=== PATIENT | female | born 1980 | race Caucasian/White ===

== ENCOUNTER 2025-03-16 13:18 | Outpatient (AMB) | payer OTHER, SELFPAY ==
[2025-03-16 13:18] VITALS: BP 126/68; BMI 31.9
--- NOTE | 2025-03-16 13:18 | A.OFFVIS_ITS ---
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: Central Supply Technician Supervisor offered & declined Allergies No Known Allergies (No Known Allergies*) Allergy (Unverified 03/16/25 13:20) Medication List - Last Reconciled 03/16/25 by Adelita Jennings CNM cyclobenzaprine 10 mg PO BEDTIME PRN levonorgestrel (Mirena) intrauterine meloxicam 7.5 mg PO DAILY PRN sertraline mg PO Is last menstrual period known: Yes Last menstrual period: 03/10/25 HPI Comments Details: The patient is a 44 year old female presenting for a routine annual gynecolo gical exam, She is new to the office and 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 Reports this is her third Mirena IUD and is accustomed to amenorrhea; however, she experienced a 4-5 day period last month, followed by another period/spotting the subsequent week. She had another episode of bleeding from the to the of the current month, which she describes as light enough for a panty liner, with red to pink blood for the first two days followed by brown discharge. She desires IUD removal as she has not been in a relationship for several years and feels she is keeping it in her body for no reason. She describes 2 abn PAPs in the past which were subsequently found to be normal on repeat testing, with the last one occurring approximately 10 years ago. Her maternal grandmother had a MANPOWER DEVELOPMENT SPECIALIST cancer (cervix or uterus) discovered late in her 90s. The patient denies a history of diabetes or hypertension but reports a history of irregular heartbeat. She recently experienced an episode of rapid heartbeat lasting for about 30 seconds, accompanied by lightheadedness, which resolved with deep breaths. she followed with her PCP and an EKG performed afterward was unremarkable, and she has a pending referral to cardiology. Her family history is significant for coronary artery disease; her paternal grandfather and uncle both from fatal heart attacks and her father required a stent for a large clot this year. Her surgical history is positive for a breast reduction. Socially, she smokes marijuana combined with tobacco and drinks alcohol seldomly. 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 She reports frequent bowel movements, sometimes loose or watery, which she believes are triggered by anxiety and stress. Excercise is limited Last Mammo : [facility] Medical History (Updated 03/16/25 @ 14:25 by Adelita Jennings CNM) Patient denies medical problems Surgical History H/O bilateral breast reduction surgery (2004) Family History Maternal Grandmother Cervical cancer Social History (Updated 03/16/25 @ 14:26 by Adelita Jennings CNM) Household Members: Family Alcohol intake: current Alcohol intake frequency: a few times a month Patient Tobacco Use Status: Current everyday Tobacco user e-Cigarette/Vaping Use: Never Used Substance Use Type: Marijuana Sexually active: Yes Sexual orientation: Straight/Heterosexual Gender identity: Female Female Reproductive History Menstrual Age of Menarche: 11 Duration of menses: 3-5 days Date of last menstrual period: 03/10/25 control method: progestin IUCD Total pregnancies: 3 Number of Living Children: 2 Ab induced: 1 History of abnormal pap smear: Yes Review of Systems Const Reports no additional complaints Eyes Reports no additional complaints ENT Reports no additional complaints Card Reports as per [facility] and Reports no additional complaints Resp Reports no additional complaints GI Reports no additional complaints Reports as per HPI Skin/Breast Reports system reviewed and no additional complaints, except as documented Physical Exam Vital Signs: Last Vital Signs BP 126/68 03/16/25 13:18 BMI result Body Mass Index 31.9 Const General: cooperative, healthy appearing and no acute distress Orientation/consciousness: patient oriented x3 HEENT Head: Yes normal to inspection and Yes normocephalic Ears: external ears normal Neck Neck: Yes normal visual inspection Chest Breast/axilla inspection: normal inspection of the breasts, normal inspection of the axillae and Other (No skin changes, peau d orange, or nipple discharge noted) Breast/axilla palpation: normal palpation of the breasts, normal palpation of the axillae and no axillary lymphadenopathy Resp Effort & Inspection: normal respiratory effort and able to speak in complete sentences GI Inspection: No distended Palpation (GI): Soft to palpation, nontender and no masses Percussion: Yes normal to percussion Rectal Exam - Female: No External hemorrhoid(s) present External Female Exam: normal external appearance and normal appearance of the urethra Speculum Exam - Vagina: normal appearance of the vagina and normal vaginal discharge Speculum Exam - Cervix: normal appearance of the cervix (iud strings visible) and normal palpation (neg CMT) Bimanual exam- vagina & uterus: normal bimanual exam, normal palpation (neg CMT), uterine mobility normal and non-tender Bimanual Exam- Adnexa, other: no masses and No adnexal tenderness Skin General skin exam: no rashes or lesions noted Neuro General: patient oriented x3 and moves all extremities Extrem General: Yes full ROM Psych Speech and movement: Normal speech and movement present Affect: normal affect Attitude: cooperative Thought process: Normal thought process present Office Procedures IUD Insert/Removal Details 37824-BSF Removal Procedure code (CPT) selection complete Assessment & Plan Assessment & Plan (1) DUB (dysfunctional uterine bleeding): Code(s): N93.8 - Other specified abnormal uterine and vaginal bleeding (2) IUD (intrauterine device) in place: Code(s): Z97.5 - Presence of (intrauterine) contraceptive device (3) Well woman exam with routine gynecological exam: Code(s): Z01.419 - Encounter for gynecological examination (general) (routine) without abnormal findings Plan: During the visit, the following areas of concern were addressed: Monitoring of the menstrual cycle Contraception, including options and instructions, risks and benefits Regular exercise Healthy lifestyle STD strategies to avoid exposure Smoking cessation Substance use Menopausal/cherelle-menopausal signs and symptoms, including nonprescription strategies for management Health Maintenance and Screening -Reviewed ASCCP guidelines for Paps and yearly (bi-yearly ) pelvic exam. -Reviewed and encouraged diet and exercise for cardiovascular and bone health -Reviewed breast self-awareness. Importance of yearly mammogram after age 40 (earlier if first-degree relative with breast cancer at a younger age ) Discuss use of 3 times per week weight-bearing exercise, vitamin D3 and servings of dietary calcium daily for bone health. -continue to follow with PCP for general medical care, immunizations. Family and personal history of cancer reviewed. Genetic screening optional- not indicated The patient has BMI: 31 Approaches towards weight loss are discussed including burning more calories than one takes in by frequent, small meals, portion control, avoiding eating before bedtime, regular exercise with an emphasis on duration rather than intensity. RTO one year or sooner ankush Jennings CNM Note about provider documentation : If you or the patient named in this chart and are reviewing your medical notes, please note that medical documentation is often written with abbreviations and medical terminology, and directed for other providers who may be involved in your care as well. Documentation is critical to record what has happened, what tests were ordered, and so they are interpreted with the resulting diagnoses. These notes have been made available for patient review but not specifically w ritten for the patient. Important health information is always given to my patients in clinical instructions. Please review your after visit summary and our contact our clinical staff if you have any questions. (4) Screening for malignant neoplasm of cervix: Code(s): Z12.4 - Encounter for screening for malignant neoplasm of cervix (5) Encounter for removal of intrauterine contraceptive device (IUD): Code(s): Z30.432 - Encounter for removal of intrauterine contraceptive device Plan: Pre-Procedure diagnosis: Desired IUD removal Post-procedure diagnosis: same Procedure: IUD removal PROCEDURE: Informed consent including discussion of risks, benefits and alternatives was obtained. The patient was placed in dorsal lithotomy position, speculum was placed in the vagina and IUD strings were visualized. The IUD was then removed using a ring forceps. The patient tolerated the procedure well. Findings: Normal appearing anatomy Complications: None Condition: Stable Plan: 1. Patient counseled that fertility is immediate following IUD removal and to expect ovulation in the next 3-4 days. 2. New method of control: condoms Plan 1. Abnormal Uterine Bleeding & Contraception Management The patient, who is on her third Mirena IUD, presents with recent irregular spotting. The bleeding may be due to the IUD nearing the end of its efficacy or a possible infection. She desires removal of the IUD as she is not currently sexually active. Plan: The Mirena IUD was removed in the office and was noted to be intact. Swabs for a Pap smear and to rule out infection were collected. The patient was counseled that her menstrual cycle may take up to 3 months to normalize. She was advised to use condoms for contraception if she becomes sexually active and informed that another IUD can be placed in the future if desired. 2. Routine Gynecological Care & Health Maintenance The patient is due for her annual MANPOWER DEVELOPMENT SPECIALIST exam and has a history of two prior abnormal Pap smears, though it has been several years since her last screening. Plan: A complete annual exam including a breast exam and pelvic exam was performed. A co-test Pap smear was collected. The patient will sign a release of information to obtain records of her last Pap smear from [facility]. She will schedule a follow-up appointment in one year. 3. Palpitations & Strong Family History of Coronary Artery Disease The patient reported a recent, self-resolving episode of palpitations and has a pending cardiology referral. There is a significant paternal family history of fatal heart attacks and coronary artery disease requiring intervention. Plan: The patient was encouraged to follow up with the cardiology referral. She was advised to contact the cardiology department if she does not receive an a ppointment within 7-10 business days. She was also counseled to monitor for triggers for her symptoms. 4. Skin Tags The patient noted new skin tags on her inner thighs and was concerned about their etiology, including a possible connection to STIs. Plan: On examination, the lesions were identified as benign-appearing skin tags. The patient was reassured. It was explained that removal is considered a cosmetic procedure. 5. Tobacco Use The patient reports mixing tobacco with marijuana for the past 5 years. She acknowledges the difficulty in quitting. Plan: The risks of tobacco use, including lung and throat cancer, were briefly discussed. The patient was encouraged to quit when she is ready. 6. 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 She struggles to find time for exercise despite owning equipment. Plan: The patient's stress was acknowledged. She was encouraged to start with small, manageable amounts of activity, such as 10 minutes of exercise or meditation per day. Orders: Orders CT NG by PCR Vag/Cerv Today N93.8 - Other specified abnormal uterine and vaginal bleeding, Z97.5 - Presence of (intrauterine) contraceptive device Bacterial Vaginosis Panel Today Z01.419 - Encounter for gynecological examination (general) (routine) without abnormal findings Pap Smear Today Z01.419 - Encounter for gynecological examination (general) (routine) without abnormal findings, Z12.4 - Encounter for screening for malignant neoplasm of cervix Coding Level of Care Code New Pt Prev Care 40-64y(49628) Diagnoses DUB (dysfunctional uterine bleeding) N93.8 IUD (intrauterine device) in place Z97.5 Well woman exam with routine gynecological exam Z01.419 Screening for malignant neoplasm of cervix Z12.4 Encounter for removal of intrauterine contraceptive device (IUD) Z30.432 CPT Codes Details - CPT: 32789-SIW Removal ([id number])
--- OUTSIDE RECORDS SUMMARY | 2025-03-16 14:24 | XMS_ITS | Clinical Summary ---
Author Organization [facility] Address [address] [place] [phone] Phone Care Team Providers Care Etcher Machine Name Role Phone Diane Elder NP Unavailable Diane Elder NP Primary Care Provider [phone] Allergies No known active allergies Medications cholecalciferol (VITAMIN D3) 1,000 unit tablet Take 1,000 Units by mouth daily. Active biotin 300 mcg Tab Take 5,000 mcg by mouth daily. Active b complex vitamins capsule Take 1 capsule by mouth daily. Active multivitamins with minerals-iron (THERA-VM) Tab Take 1 tablet by mouth daily. Active calcium acetate (PHOSLO) 667 mg (169 mg elemental) capsule Take 1,334 mg by mouth 3 (three) times a day with meals. Active fexofenadine-ps eudoephedrine ([place]-D) 60-120 mg per tablet Take 1 tablet by mouth 2 (two) times a day. Active Hospital, Clinic, or Other Facility Administered Medication Ordered Dose Route Frequency Start Date End Date Status levonorgestrel (MIRENA) 20 mcg/24 hours (5 yrs) 52 mg intrauterine device 1 eachIndications:Encounter for removal and reinsertion of intrauterine contraceptive device (IUD) 1 each Utrn Every 5 years 01/13/2019 Active Active Problems Problem Noted Date Diagnosed Date Encounter for removal and re insertion of intrauterine contraceptive device (IUD) 01/13/2019 IUD (intrauterine device) in place 05/22/2017 Overview (05/22/2017): Mirena (07/2012) History of abnormal cervical Pap smear 8 Overview (05/24/2017): 06/2007, 08/2007: LGSIL 2009: NIL 2012: NIL 11/2015: NIL/HPV + 12/2016: NIL/HPV + -> colpo benign PLAN: repeat in 1 year Family History Medical History Relation Comments Hypertension Father Alzheimer's disease Maternal Grandfather Cancer Maternal Grandmother No Known Problems Mother Relation Status Comments Brother Father Alive Maternal Grandfather Maternal Grandmother Mother Alive Paternal Grandfather Paternal Grandmother Social History Tobacco Use Types Packs/Day Years Used Date Smoking Tobacco: Never Smokeless Tobacco: Never Alcohol Use Standard Drinks/Week Comments Yes 0 (1 standard drink = 0.6 oz pur e alcohol) once in a blue [place] Education Answer Date Recorded Are you interested in more education? Not on gurwinder e 07/20/2022 Are you concerned about learning? Not on file 07/20/2022 No 07/20/2022 No 07/20/2022 Digital Access Answer Date Recorded No 08/17/2022 No 08/17/2022 Reliable internet access at home? Not on file 08/17/2022 Device with a working camera? Not on file Comments No Sex and Gender Information Value Date Recorded Sex Assigned at Not on file Legal Sex Female 9:23 PM EDT Gender Identity Not on file Sexual Orientation Not on file Occupation Industry Job Start Date Job End Date [employer] Not on file Not on file Not o n file Last Filed Vital Signs Vital Sign Reading Time Taken Comments Blood Pressure 112/68 02/24/2019 4:17 PM EST Pulse - - Temperature - - Respiratory Rate - - Oxygen Saturation - - Inhaled Oxygen Concentration - - Weight 87.1 kg (192 lb) 02/24/2019 4:17 PM EST Height 174 cm (5' 8.5 ) 02/24/2019 4:17 PM EST Body Mass Index 28.77 02/24/2019 4:17 PM EST Plan of Treatment Health Maintenance Due Date Last Done Comments LIPID PANEL 1978 DEPRESSION SCREENING 1990 HEPATITIS C SCREENING 1996 HIV ONE-TIME SCREENING (18-6 5 YEARS) 1996 Adult Td,Tdap Booster 11/07/2013 11/08/2003 MAMMOGRAM 01/23/2021 01/23/2019 PAP SMEAR 10/15/2021 10/15/2018, 10/15/2018, 12/25/2016 COLOGUARD 11/25/2023 COLONOSCOPY 11/25/2023 COLORECTAL CANCER SCREENING 11/25/2023 FIT TEST 11/25/2023 FOBT 11/25/2023 SIGMOIDOSCOPY 11/25/2023 VIRTUAL COLONOSCOPY 11/25/2023 INFLUENZA VACCINE (#1) 2024 COVID-19 VACCINE (3 - 2024-2 6 season) 2024 04/26/2020, 03/29/2020 IUD 01/13/2027 01/13/2019 SMOKING STATUS SCREENING (On ce After 26 Yrs) Completed 01/13/2019 HEPATITIS A VACCINES Aged Out No long er eligible based on patient's age to complete this topic HIB VACCINES Aged Out No longer eligi ble based on patient's age to complete this topic MENINGOCOCCAL VACCINES (ACWY) Aged Out No longer eligible based on patient's age to complete this topic MENINGOCOCCAL VACCINES (B) Aged Out N o longer eligible based on patient's age to complete this topic PNEUMOCOCCAL VACCINES (0-49 years) Aged Out No longer eligible b ased on patient's age to complete this topic Medical Devices Not on file Procedures Procedure Name Priority Date/Time Associated Diagnosis Comments BI MAMMOGRAM SCREENING WITH TOMOSYNTHESIS WITH CAD (BILATERAL) Routine 01/23/2019 7:30 AM EDT Breast screening PAP TEST Routine 10/15/2018 12:00 AM EDT from Last 3 Months or Most Recently Relevant to Health Maintenance Results * BI MAMMOGRAM SCREENING WITH TOMOSYNTHESIS WITH CAD (BILATERAL) (01/23/2019 7:30 AM EDT) Anatomical Region Laterality Modality Breast Left, Breast Right, Breast Bilateral Bila teral Mammography 01/23/2019 11:0 3 AM EDT Impressions 01/23/2019 11:06 AM EDT No mammographic change indicative of malignancy. Routine screening is recommended. BI-RADS CATEGORY: 2 - Benign finding. DENSITY: The breast tissue is heterogeneously dense, an appearance which lowers the sensitivity of mammography. POS -CDHMAMA Narrative 01/23/2019 11:06 AM EDT Bilateral full-field digital screening mammography is obtained and read in conjunction with computer-aided detection. Tomosynthesis as well as 2-D C view imaging of both breasts in two planes also obtained. There is a baseline study. No dominant mass, architectural distortion, worrisome asymmetry, or suspicious calcification is identified. No skin or nipple finding of concern is appreciated. Some dermal calcification noted, more on the right. Procedure Note Yara Malagon MD - 01/23/2019 Bilateral full-field digital screening mammography is obtained and read inconjunction with computer-aided detection. Tomosynthesis as well as 2-D Cview imaging of both breasts in two planes also obtained. There is abaseline study. No dominant mass, architectural distortion, worrisome asymmetry, orsuspicious calcification is identified. No skin or nipple finding ofconcern is appreciated. Some dermal calcification noted, more on theright. IMPRESSION: No mammographic change indicative of malignancy. Routine screening isrecommended. BI-RADS CATEGORY: 2 - Benign finding. DENSITY: The breast tissue is heterogeneously dense, an appearance whichlowers the sensitivity of mammography. POS -CDHMAMA Diane Elder TEARER IMG MG EXAMS Final Resul t * Pap Smear (10/15/2018 12:00 AM EDT) 10/15/2018 10/16/2018 9:5 7 AM EDT Narrative SEE NARRATIVE - 10/27/2018 8:40 AM EDT [address] [address] Print Room Worker: Paige Brooks MD INTERNAL REVIEW AND AUDIT COMPLIANCE Cytology Report FINAL DIAGNOSIS A. PAP SMEAR (SUREPATH) CE: SPECIMEN ADEQUACY: Satisfactory for evaluation; transformation zone present. INTERPRETATION: NEGATIVE FOR INTRAEPITHELIAL LESION OR MALIGNANCY. Coccobacilli consistent with shift in salo Electronically Signed Out By: Ishan M. Veronica, CT(ASCP) The Pap test is a screening test primarily for squamous cancers and precursors and has associated false-negative and false-positive results. New technologies such as liquid-based preparations may decrease but will not eliminate all false-negative results. Regular sampling and follow-up of unexplained clinical signs and symptoms are recommended to minimize false negative results. PROCEDURES/ADDENDA HPV Testing (Requested) Ordered Date: 10/16/2018 A. PAP SMEAR (SUREPATH) CE: Human Papilloma Virus Test Negative for high-risk human papillomavirus types 16, 18, 45 and the Other high risk probe set (Includes 31, 33, 35, 39, 51, 52, 56, 58, 59, 66, 68) by [place] HR-HPV analysis. Clinical correlation is advised. This HPV test was performed at [facility], [address] [place] [address]. This test has been FDA approved for SurePath cervical cytology specimens. The accuracy and precision of this test for all other specimen sources has been verified in the Cytopathology Laboratory of the [facility] and has not been cleared or approved by the U.S. Food and Drug Administration. Clinical correlation is advised. CLINICAL HISTORY Date of Last Menstrual Period: Not Provided Menstrual History: Unknown Contraceptive History: IUD Other Clinical Conditions: Screening Pap H/O LSIL: 2007 SPECIMEN SOURCE A: PAP SMEAR (SUREPATH) CE Patient Name: ALONDRA SNOW : 1980 (Age: 37) Sex: F Institution: [facility] Location: [facility] Date of Collection: 10/15/2018 Date of Reported: 10/21/2018 12:13 Results to: Veronica Nicolas MD us Veronica Nicolas MD CYTOLOGY ORDERABLES Edited Re sult - Final SEE NARRATIVE from Last 3 Months or Most Recently Relevant to Health Maintenance Insurance O ([place]) [phone] [facility] Care Teams Etcher Machine Relationship Specialty Start Date End Date Diane Elder NP [address] [place] [address] PCP - General 10/15/18 Diane Elder NP [address] [place] [address] Historical LMR Provider 01/13/17 Additional Source Comments The information contained in this document represents components of the legal health record. It is not the complete legal health record.[facility]
--- OUTSIDE RECORDS SUMMARY | 2025-03-16 14:24 | XMS_ITS | Clinical Summary ---
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 Name Role Phone Ced Frey DO Primary Care Provider [phone] Encounters Date Type Department Care Team Description 03/05/2025 Telephone [facility] - [address] [place] [address] Ced Frey DO 02/26/2025 2:40 PM EST Lab Draw Station - [facility] [address] [place] [address] Encounter for general adult medical examination without abnormal findings; Irregular menstruation, unspecified 02/26/2025 2:35 PM EST Lab Draw Station - [address] [address] [place] [address] 02/26/2025 2:25 PM EST Lab Draw Station - [address] [address] [place] [address] from Last 3 Months Surgical History Surgery Date Site/Laterality Comments BREAST REDUCTION 2014 Bilateral PROCEDURE: MT BREAST REDUCTION Medical History Medical History Date Comments Seasonal allergies DX:Seasonal a llergies Anxiety disorder DX:Anxiety diso rder Vitamin D deficiency 08/16/2020 DX:Vitamin D deficiency Migraine 08/16/2020 DX:Migraine Allergic rhinitis 08/16/2020 DX:Allergic rh initis Family History Medical History Relation Name Comments Depression Father blindness russel mckeon to glaucoma, hyperlipidemia Alzheimer's disease Maternal Grandmother Cervical cancer Maternal Grandmother Depression Mother fibromyalgia Osteoporosis Mother Bipolar disorder Paternal Grandmother Relation Name Status Comments Father Alive Maternal Grandfather Maternal Grandmother Mother Alive Paternal Grandfather Paternal Grandmother Social History Tobacco Use Types Packs/Day Years Used Date Smoking Tobacco: Light Smoker Smokeless Tobacco: Former Tobacco Cessation:Ready to Q uit: No; Counseling Given: No Alcohol Use Standard Drinks/Week Comments Yes 0 (1 standard drink = 0.6 oz pur e alcohol) Comments No Sex and Gender Information Value Date Recorded Sex Assigned at Female 03/12/2024 8:59 AM EST Legal Sex Female 4:52 AM EST Gender Identity Female 03/12/2024 8:59 AM EST Sexual Orientation Choose not to disclose 2023 8:59 AM EST Obstetrics History Para Term AB IAB SAB Ectopic Multiple Livin g Live Births 2 Last Filed Vital Signs Vital Sign Reading Time Taken Comments Blood Pressure - - Pulse - - Temperature - - Respiratory Rate - - Oxygen Saturation - - Inhaled Oxygen Concentration - - Weight 83.5 kg (184 lb) 04/04/2024 9:36 AM EST Height 175.3 cm (5' 9 ) 04/04/2024 9:36 AM EST Body Mass Index 27.17 04/04/2024 9:36 AM EST Plan of Treatment Health Maintenance Due Date Last Done Comments Colorectal Cancer Screening: Colonoscopy 1978 Pneumococcal Vaccine: Pediatrics (0 to 5 Years) and At-Risk Patients (6 to 49 Years) (1 of 2 - PCV) 1997 Cervical Cancer Screening: Pap Smear 11/25/1999 HIV Screening 02/25/2022 Social Influencers of Health Screening 02/25/2022 Depression Screening 03/25/2024 DTaP,Tdap,and Td Vaccines (3 - Td or Tdap) 01/04/2025 01/04/2015, 11/08/2003 Breast Cancer Screening 04/04/2026 04/04/2024, 01/23 Cholesterol Screening (Lipid Panel) 02/26/2030 02/26/2025, 03/06/2024 RSV Immunization Adult Patients (1 - 1-dose 75+ series) 2053 MMR Vaccines Aged Out 11/08/2003 No longer eligi ble based on patient's age to complete this topic Hepatitis B Vaccines Completed 08/31/2009, 03/22/2009, 02/04/2009, Additional history exists Hepatitis C Screening Completed 03/06/2024 COVID-19 Vaccine Completed 12/12/2024, 07/2021, 04/18/2021, Additional history exists Influenza Vaccine Completed 12/12/2024, , 12/20/2022, Additional history exists HIB Vaccines Aged Out No longer eligi ble based on patient's age to complete this topic HPV Vaccines Aged Out No longer eligi ble based on patient's age to complete this topic Hepatitis A Vaccines Aged Out No long er eligible based on patient's age to complete this topic IPV Vaccines Aged Out No longer eligi ble based on patient's age to complete this topic Meningococcal ACWY Vaccine Aged Out N o longer eligible based on patient's age to complete this topic Meningococcal B Vaccine Aged Out No l onger eligible based on patient's age to complete this topic RSV Immunization Patients Under 20 months Aged Out No longer eligible based on patient's age to complete this topic Varicella Vaccines Aged Out No longer eligible based on patient's age to complete this topic Procedures Procedure Name Priority Date/Time Associated Diagnosis Comments CBC WITH AUTO DIFFERENTIAL Routine 02/26/2025 2:34 PM EST Encounter for general adult medical examination without abnormal findings LUTEINIZING HORMONE Routine 02/26/2025 2 :34 PM EST Irregular menstruation, unspecified FOLLICLE STIMULATING HORMONE Routine 02/26/2025 2:34 PM EST Irregular menstruation, unspecified ESTRADIOL Routine 02/26/2025 2:34 PM EST Irregular menstruation, unspecified PROGESTERONE Routine 02/26/2025 2:34 PM EST Irregular menstruation, unspecified CBC AND DIFFERENTIAL Routine 02/26/2025 2:34 PM EST Encounter for general adult medical examination without abnormal findings THYROID STIMULATING HORMONE Routine 02/26/2025 2:34 PM EST Encounter for general adult medical examination without abnormal findings LIPID PANEL WITH REFLEX TO DIRECT LDL Routine 02/26/2025 2:34 PM EST Encounter for general adult medical examination without abnormal findings HEMOGLOBIN A1C Routine 02/26/2025 2:34 PM EST Encounter for general adult medical examination without abnormal findings BASIC METABOLIC PANEL Routine 02/26/2025 2:34 PM EST Encounter for general adult medical examination without abnormal findings ASPARTATE AMINOTRANSFERASE Routine 02/26/2025 2:34 PM EST Encounter for general adult medical examination without abnormal findings ALANINE AMINOTRANSFERASE Routine 2:34 PM EST Encounter for general adult medical examination without abnormal findings MG MAMMO DIGITAL SCREENING W SHASHANK BILAT Routine 04/04/2024 9:47 AM EST Encounter for screening mammogram for malignant neoplasm of breast HEPATITIS C ANTIBODY Routine 03/06/2024 1:32 PM EST Routine general medical examination at a health care facility Impaired fasting glucose Screening for ischemic heart disease Screening for thyroid disorder Numbness and tingling in both hands CTS (carpal tunnel syndrome) Fatigue from Last 3 Months or Most Recently Relevant to Health Maintenance Results * Lipid panel with reflex to direct LDL (02/26/2025 2:34 PM EST) Cholesterol 193 0 - 200 mg/dL 02/26/2025 8:24 PM [facility] Triglycerides 131 0 - 150 mg/dL 02/26/2025 8:24 PM [facility] HDL 67 >=40 mg/dL 02/26/2025 8:24 PM [facility] LDL Calculated 100 0 - 100 mg/dL 02/26/2025 8:24 PM [facility] Comment:Estimated LDL Calcul ated using equation: Total cholesterol - HDL cholesterol - (Triglycerides/5) VLDL Cholesterol Bruce 26.2 mg/dL 02/26/2025 8:24 PM [facility] Non HDL Chol. (LDL+VLDL) 126 <145 mg/dL 02/26/2025 8:24 PM [facility] Chol/HDL Ratio 2.9 0.0 - 4.4 02/26/2025 8:24 PM [facility] Blood Venipuncture / Unknown 02/26/2025 2:34 PM EST 02/26/2025 2:34 PM EST us Bynum James OUTREACH MANAGER LAB BLOOD ORDERABLES Final Resul t [facility] [address] [place] [address], * CBC auto differential (02/26/2025 2:34 PM EST) WBC 6.8 4.8 - 10.8 K/mcL LAB HEMETOLOGY METHOD 02/26/2025 7:34 PM [facility] RBC 4.40 3.80 - 4.80 M/mcL LAB HEMETOLOGY METHOD 02/26/2025 7:34 PM [facility] Hemoglobin 13.6 11.5 - 16.0 g/dL LAB HEMETOLOGY METHOD 02/26/2025 7:34 PM [facility] Hematocrit 40.1 35.0 - 47.0 % LAB HEMETOLOGY METHOD 02/26/2025 7:34 PM [facility] MCV 92.2 79.0 - 98.0 FL LAB HEMETOLOGY METHOD 02/26/2025 7:34 PM [facility] MCH 31.3 27.0 - 32.0 pcg LAB HEMETOLOGY METHOD 02/26/2025 7:34 PM [facility] MCHC 33.9 32.0 - 37.0 g/dL LAB HEMETOLOGY METHOD 02/26/2025 7:34 PM [facility] RDW 12.5 11.0 - 15.0 % LAB HEMETOLOGY METHOD 02/26/2025 7:34 PM [facility] Platelets 292 130 - 400 K/mcL LAB HEMETOLOGY METHOD 02/26/2025 7:34 PM [facility] MPV 9.9 7.0 - 11.0 FL LAB HEMETOLOGY METHOD 02/26/2025 7:34 PM [facility] NRBC 0.0 <1.0 % LAB HEMETOLOGY METHOD 02/26/2025 7:34 PM [facility] NRBC Absolute 0.00 <0.10 K/mcL LAB HEMETOLOGY METHOD 02/26/2025 7:34 PM [facility] Neutrophils Relative 54.7 % LAB HEMETOLOGY METHOD 02/26/2025 7:34 PM [facility] Lymphocytes Relative 35.2 % LAB HEMETOLOGY METHOD 02/26/2025 7:34 PM [facility] Monocytes Relative 6.0 % LAB HEMETOLOGY METHOD 02/26/2025 7:34 PM [facility] Eosinophils Relative 3.1 % LAB HEMETOLOGY METHOD 02/26/2025 7:34 PM [facility] Basophils Relative 0.9 % LAB HEMETOLOGY METHOD 02/26/2025 7:34 PM [facility] Immature Granulocytes Relative 0.1 % LAB HEMETOLOGY METHOD 02/26/2025 7:34 PM [facility] Neutrophils Absolute 3.71 1.50 - 7.00 K/mcL LAB HEMETOLOGY METHOD 02/26/2025 7:34 PM [facility] Lymphocytes Absolute 2.39 1.00 - 5.00 K/mcL LAB HEMETOLOGY METHOD 02/26/2025 7:34 PM [facility] Monocytes Absolute 0.41 0.20 - 1.00 K/mcL LAB HEMETOLOGY METHOD 02/26/2025 7:34 PM [facility] Eosinophils Absolute 0.21 0.00 - 0.50 K/mcL LAB HEMETOLOGY METHOD 02/26/2025 7:34 PM EST [facility] Basophils Absolute 0.06 0.00 - 0.20 K/[facility] LAB HEMETOLOGY METHOD 02/26/2025 7:34 PM EST [facility] Immature Granulocytes Absolute 0.01 0.00 - 0.03 K/[facility] LAB HEMETOLOGY METHOD 02/26/2025 7:34 PM EST [facility] Blood Venipuncture / Unknown 02/26/2025 2:34 PM EST 02/26/2025 2:34 PM EST Misa James OUTREACH MANAGER LAB BLOOD ORDERABLES Final Resul t Performing Organization Address [facility] Co de Phone Number [facility] [address] [place] [address], [place] [phone] * Progesterone (02/26/2025 2:34 PM EST) Progesterone 1.2 See comment ng/mL 02/26/2025 10:26 PM EST [facility] Blood Venipuncture / Unknown 02/26/2025 2:34 PM EST 02/26/2025 2:34 PM EST Narrative [facility] - 02/26/2025 10:26 PM EST Progesterone Female Reference Ranges (ng/mL) Normally Menstruating: Follicular phase: 0.2 - 1.4 Mid-cycle phase: 3.3 - 25.6 Luteal phase: 4.4 - 28.0 Post-menopausal: 0.7 or less : First trimester: 11.2 - 90.0 Second trimester: 25.6 - 89.4 Third trimester: 48.4 - 422.5 This assay should not be used in patients taking DHEA supplements as part of IVF treatment. A metabolite (DHEA-S) of this supplement has been shown to cross-react with the progesterone assay and cause falsely elevated results. Bynum James OUTREACH MANAGER LAB BLOOD ORDERABLES Final Resul t [facility] [address] [place] [address], [place] [phone] * Estradiol (02/26/2025 2:34 PM EST) Estradiol 85 See below pcg/mL 02/26/2025 10:27 PM EST [facility] Blood Venipuncture / Unknown 02/26/2025 2:34 PM EST 02/26/2025 2:34 PM EST Narrative [facility] - 02/26/2025 10:27 PM EST Estradiol Female Reference Ranges (pg/mL): Menstruating: Follicular phase: 19.5 - 144.2 Mid-cycle phase: 63.9 - 356.7 Luteal phase: 55.8 - 214.2 Post menopausal: Untreated: ND - 32.2 Fulvestrant has been shown to cross-react with the estradiol assay and cause falsely elevated results. For patients being treated with fulvestrant, Estradiol ultrasensitive should be ordered. This test is performed by LC/MS and is not expected to show cross reactivity to fulvestrant. us Bynum James OUTREACH MANAGER LAB BLOOD ORDERABLES Final Resul t Performing Organization Address [facility] de Phone Number [facility] [address] [place] [address], [place] [phone] * Alanine aminotransferase (02/26/2025 2:34 PM EST) ALT (SGPT) 28 10 - 60 unit/L 02/26/2025 8:24 PM EST [facility] Blood Venipuncture / Unknown 02/26/2025 2:34 PM EST 02/26/2025 2:34 PM EST us Bynum James OUTREACH MANAGER LAB BLOOD ORDERABLES Final Resul t Performing Organization Address [facility] Co de Phone Number [facility] [address] [place] [address], [place] [phone] * Aspartate aminotransferase (02/26/2025 2:34 PM EST) AST (SGOT) 22 10 - 42 unit/L 02/26/2025 8:24 PM EST [facility] Blood Venipuncture / Unknown 02/26/2025 2:34 PM EST 02/26/2025 2:34 PM EST [facility] LAB BLOOD ORDERABLES Final Resul t Performing Organization Address City/[facility]/ZIP Co de Phone Number [facility] [address] [place] [address], [place] [phone] * Thyroid stimulating hormone (02/26/2025 2:34 PM EST) Pathologist [facility] TSH 1.42 0.40 - 4.00 mcIU/mL 02/26/2025 8:37 PM EST [facility] Blood Venipuncture / Unknown 02/26/2025 2:34 PM EST 02/26/2025 2:34 PM EST [facility] LAB BLOOD ORDERABLES Final Resul t Performing Organization Address City/[facility]/ZIP Co de Phone Number [facility] [address] [place] [address], [place] [phone] * Hemoglobin A1c (02/26/2025 2:34 PM EST) Pathologist [facility] Hemoglobin A1C 5.1 <6.5 % LAB CHEMISTRY METHOD 03/03/2025 2:34 PM EST [facility] Mean Bld Glu Estim. 100 mg/dL LAB CHEMISTRY METHOD 03/03/2025 2:34 PM EST [facility] Blood Venipuncture / Unknown 02/26/2025 2:34 PM EST 02/26/2025 2:34 PM EST us Bynum James OUTREACH MANAGER LAB BLOOD ORDERABLES Final Resul t Performing Organization Address City/[facility]/ZIP Co de Phone Number [facility] [address] [place] [address], * Luteinizing hormone (02/26/2025 2:34 PM EST) Luteinizing Hormone 6.6 See Comment mIU/mL 02/26/2025 10:26 PM EST [facility] Blood Venipuncture / Unknown 02/26/2025 2:34 PM EST 02/26/2025 2:34 PM EST Narrative [facility] - 02/26/2025 10:26 PM EST LH Female Reference Ranges (mIU/mL): Menstruating: Follicular phase: 1.9 - 12.5 Mid-cycle phase: 8.7 - 76.3 Luteal phase 0.5 - 16.9 Post-menopausal: 5.0 - 55.2 : < 0.1 - 1.5 [email or web address] OUTREACH MANAGER LAB BLOOD ORDERABLES Final Resul t Performing Organization Address City/[facility]/ZIP Co de Phone Number [facility] [address] [place] [address], * Follicle stimulating hormone (02/26/2025 2:34 PM EST) Follicle Stimulating Hormone 8.4 See Comment mIU/mL 02/26/2025 10:26 PM EST [facility] Blood Venipuncture / Unknown 02/26/2025 2:34 PM EST 02/26/2025 2:34 PM EST Narrative [facility] - 02/26/2025 10:26 PM EST [facility] Female Reference Ranges (mIU/mL): Menstruating: Follicular phase: 2.5 - 10.2 Mid-cycle phase: 3.4 - 33.4 Luteal phase: 1.5 - 9.1 Post-menopausal: 23.0 - 116.3 : < 0.3 us Bynum James OUTREACH MANAGER LAB BLOOD ORDERABLES Final Resul t [facility] [address] [place] [address], * Basic metabolic panel (02/26/2025 2:34 PM EST) Sodium 138 133 - 145 mmol/L 02/26/2025 8:24 PM [facility] Potassium 4.2 3.5 - 5.5 mmol/L 02/26/2025 8:24 PM [facility] Chloride 103 96 - 110 mmol/L 02/26/2025 8:24 PM [facility] CO2 25 21 - 32 mmol/L 02/26/2025 8:24 PM [facility] Anion Gap 10 3 - 11 02/26/2025 8:24 PM [facility] Glucose 82 70 - 100 mg/dL 02/26/2025 8:24 PM [facility] BUN 13 5 - 25 mg/dL 02/26/2025 8:24 PM [facility] Creatinine 0.76 0.50 - 1.10 mg/dL 02/26/2025 8:24 PM [facility] eGFR 98 >=60 mL/min/1. 73m2 02/26/2025 8:24 PM [facility] Comment:Calculation based on the Chronic Kidney Disease Epidemiology Collaboration (CKD-EPI) equation refit without adjustment for race. BUN/Creatinine Ratio 17.1 02/26/2025 8:24 PM [facility] Calcium 9.0 8.5 - 10.5 mg/dL 02/26/2025 8:24 PM [facility] Blood Venipuncture / Unknown 02/26/2025 2:34 PM EST 02/26/2025 2:34 PM EST us Bynum James OUTREACH MANAGER LAB BLOOD ORDERABLES Final Resul t [facility] [address] [place] [address], [place] [phone] * MG Mammo Digital Screening w Shashank bilat (04/04/2024 9:47 AM EST) Anatomical Region Laterality Modality Breast Bilateral Mammography 04/06/2024 4:42 PM EST Impressions 04/06/2024 4:50 PM EST No mammographic evidence of malignancy. No suspicious interval change. A negative mammogram in the presence of a clinically suspicious palpable abnormality does not preclude the possibility of malignancy or alter the indications for biopsy. ASSESSMENT: BI-RADS 2: BENIGN RECOMMENDATION(S): 1: Routine screening mammogram BILATERAL in 1 year. -------- FINAL REPORT -------- Dictated By: Maciel Paulino Dictated Date: 04/06/2024 16:42 ET Assigned Physician: Maciel Paulino Reviewed and Electronically Signed By: Maciel Paulino Signed Date: 04/06/2024 16:50 ET Workstation ID: [id number] Transcribed By: Self Edit Transcribed Date: 04/06/2024 16:42 ET Narrative 04/06/2024 4:50 PM EST EXAM: SCREENING MAMMOGRAPHY, BILATERAL HISTORY: SCREENING. Breast reduction surgery 2014. COMPARISON: 01/23/2019 TECHNIQUE: Synthesized CC and MLO projections of each breast. Tomosynthesis of each breast in the CC and MLO projections. ADDITIONAL IMAGING: None Computer-aided detection was employed with the [employer] AI 3-D. TISSUE DENSITY: The breasts are heterogeneously dense, which may obscure small masses. (BI-RADS category C) FINDINGS: RIGHT BREAST: No suspicious mass. No suspicious calcification. Pattern consistent with previous reduction surgery. No obvious interval changes. LEFT BREAST: No suspicious mass. No suspicious calcification. Pattern consistent with previous reduction surgery. No obvious interval changes. Procedure Note Maciel Paulino MD - 04/06/2024 EXAM: SCREENING MAMMOGRAPHY, BILATERAL HISTORY: SCREENING. Breast reduction surgery 2014. COMPARISON: 01/23/2019 TECHNIQUE: Synthesized CC and MLO projections of each breast.Tomosynthesis of each breast in the CC and MLO projections. ADDITIONAL IMAGING: None Computer-aided detection was employed with the [employer] AI 3-D. TISSUE DENSITY: The breasts are heterogeneously dense, which may obscuresmall masses. (BI-RADS category C) FINDINGS: RIGHT BREAST: No suspicious mass. No suspicious calcification. Pattern consistent with previous reduction surgery. No obvious intervalchanges. LEFT BREAST: No suspicious mass. No suspicious calcification. Pattern consistent with previous reduction surgery. No obvious intervalchanges. IMPRESSION: No mammographic evidence of malignancy. No suspicious interval change. A negative mammogram in the presence of a clinically suspicious palpableabnormality does not preclude the possibility of malignancy or alter theindications for biopsy. ASSESSMENT: BI-RADS 2: BENIGN RECOMMENDATION(S): 1: Routine screening mammogram BILATERAL in 1 year. -------- FINAL REPORT -------- Dictated By: Maciel Paulino Dictated Date: 04/06/2024 16:42 ET Assigned Physician: Maciel Paulino Reviewed and Electronically Signed By: Maciel Paulino Signed Date: 04/06/2024 16:50 ET Workstation ID: [id number] Transcribed By: Self Edit Transcribed Date: 04/06/2024 16:42 ET Ced Frey DO [facility] BI PROCEDURES Final Resul t * Hepatitis C antibody (03/06/2024 1:32 PM EST) Hepatitis C Antibody Negative Negative LAB CHEMISTRY METHOD 03/06/2024 5:10 PM EST [facility] Blood Venous blood specimen / Unknown Venipuncture / Unknown 03/06/2024 1:32 PM EST 03/06/2024 1:33 PM EST us Bynum James OUTREACH MANAGER LAB BLOOD ORDERABLES Final Resul t [facility] [address] [place] [address], [place] [phone] from Last 3 Months or Most Recently Relevant to Health Maintenance Insurance [employer] Care Teams Production Drilling Machine Operator Relationship Specialty Start Date End Date Ced Frey DO [address] [place] [id number] PCP - General 04/10/23
--- OUTSIDE RECORDS SUMMARY | 2025-03-16 14:24 | XMS_ITS | Encounter Summary ---
Author Organization [facility] Address [address] [place] [address] Phone Care Team Providers Care Food Chemist Name Role Phone Diane Elder OPERATIONS EXECUTIVE Unavailable [phone] Arlette Lambert CNM Unavailable Dorota Patino OPERATIONS EXECUTIVE Unavailable [phone] Ralph Nicole MD Unavailable [phone] Bailee Funk MD Unavailable [phone] John Cho MD Unavailable Stefano Bustamante MD Unavailable Diane Elder OPERATIONS EXECUTIVE Primary Care Provider Encounter Details Date Type Department Care Team (Late st Contact Info) Description 01/02/2019 Ancillary Orders Virtual Department [address] [place] [address] Diaen Elder, OPERATIONS EXECUTIVE [address] [place] [address] Breast screening Social History Tobacco Use Types Packs/Day Years Used Date Smoking Tobacco: Never Smokeless Tobacco: Never Alcohol Use Standard Drinks/Week Comments Yes 0 (1 standard drink = 0.6 oz pur e alcohol) once in a blue [place] Comments No Sex and Gender Information Value Date Recorded Sex Assigned at Not on file Legal Sex Female 9:23 PM EDT Gender Identity Not on file Sexual Orientation Not on file 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 POS -CDHMAMA us Diane Elder OPERATIONS EXECUTIVE IMG MG EXAMS Final Resul t documented in this encounter Visit Diagnoses Diagnosis Breast screening Breast screening, unspecified Breast screening Breast screening, unspecified documented in this encounter Care Teams Food Chemist Relationship Specialty Start Date End Date Diane Elder, OPERATIONS EXECUTIVE [address] [place] [id number] PCP - General 10/15/18 Diane Elder, OPERATIONS EXECUTIVE [address] [place] [id number] Historical LMR Provider 01/13/17 Arlette Lambert CNM [address] [place] [address] Historical LMR Provider 01/13/17 2 Dorota Patino NP [address] [place] [id number] [email or web address] Historical LMR Provider 01/13/17 04/01/21 Ralph Nicole MD [address] [place] [address] Historical LMR Provider 01/13/17 Bailee Funk MD [address] [place] [address] Historical LMR Provider 01/13/17 2 John Cho MD [address] [place] [address] Historical LMR Provider 01/13/17 04/01/21 Stefano Bustamante MD [address] [place] [phone] Historical LMR Provider 01/13/17 2 documented as of this encounter Additional Source Comments The information contained in this document represents components of the legal health record. It is not the complete legal health record.[facility]
== END 2025-03-16 14:22 | disposition home or self-care (01) ==
LOC: HO.HWSM 13:18
PROVIDERS: PCP Nurse Practitioner Adult Health; Visit Provider Advanced Practice Midwife
DX: Z01.419 Encounter for gynecological examination (general) (routine) without abnormal findings (principal); N93.8 Other specified abnormal uterine and vaginal bleeding; Z97.5 Presence of (intrauterine) contraceptive device; Z12.4 Encounter for screening for malignant neoplasm of cervix; Z30.432 Encounter for removal of intrauterine contraceptive device
CPT/HCPCS: 58301; 99386; 99459